=== PATIENT | female | born 1985 | race African-American/Black ===

== ENCOUNTER 2018-07-05 18:41 | Emergency (ER) | payer MEDICAID, OTHER ==
[~2018-07-05] VITALS: Ht 165.1 cm; Wt 73.0 kg
[2018-07-05 19:14] VITALS: BP 138/76
[2018-07-05] MEDS ORDERED: PREDNISONE 20MG TABLET PO ONE (21:45)
[2018-07-05] MEDS ORDERED: DIPHENHYDRAMINE 25MG CAPSULE PO ONE (21:45)
[2018-07-06] MEDS ORDERED: FAMOTIDINE 20MG TABLET PO SCH (21:00)
== END 2018-07-05 22:03 | disposition home or self-care (01) ==
LOC: ER 18:41
DX: T78.40XA Allergy, unspecified, initial encounter (principal); X58.XXXA Exposure to other specified factors, initial encounter
CPT/HCPCS: 99283; J7512; Q0163

== ENCOUNTER 2018-12-24 09:53 | Emergency (ER) | payer SELFPAY ==
[~2018-12-24] VITALS: Ht 165.1 cm; Wt 91.0 kg
[2018-12-24 10:01] VITALS: BP 115/80
[2018-12-24] MEDS ORDERED: NAPROXEN 250MG TABLET PO ONE (12:45)
== END 2018-12-24 13:52 | disposition home or self-care (01) ==
LOC: ER 10:10
DX: M54.2 Cervicalgia (principal); R03.0 Elevated blood-pressure reading, without diagnosis of hypertension
CPT/HCPCS: 99283

== ENCOUNTER 2019-01-02 09:03 | Emergency (ER) | payer SELFPAY ==
[~2019-01-02] VITALS: Ht 165.1 cm; Wt 85.0 kg
[2019-01-02 10:50] VITALS: BP 112/80
== END 2019-01-02 10:50 | disposition home or self-care (01) ==
LOC: ER 09:03
DX: T78.1XXA Other adverse food reactions, not elsewhere classified, initial encounter (principal); F41.9 Anxiety disorder, unspecified; F32.9 Major depressive disorder, single episode, unspecified; X58.XXXA Exposure to other specified factors, initial encounter
CPT/HCPCS: 99282